=== PATIENT | male | born 1990 | race African-American/Black ===

== ENCOUNTER 2022-01-17 14:40 | Emergency (ER) | payer SELFPAY ==
[~2022-01-17] VITALS: Ht 177.8 cm; Wt 105.0 kg
[2022-01-17 18:16] LABS: BASOPHILS % 0.7 % (0.0-2.0); EOSINOPHILS % 1.1 % (0.0-5.0); HEMATOCRIT. 43.4 % (42.0-52.0); HEMOGLOBIN. 14.4 g/dL (14.0-18.0); LYMPHOCYTES % 41.6 % (20.0-50.0); MEAN CORPUSCULAR HEMOGLOBIN 29.2 pg (28.0-32.0); MEAN CORPUSCULAR VOLUME 87.7 fL (80.0-94.0); MEAN PLATELET VOLUME 7.9 fl (7.4-10.4); MONOCYTES % 7.2 % (2.0-8.0); NEUTROPHILS % 49.4 % (40.0-76.0); PLATELET 209 x1000/uL (130-400); RED BLOOD CELL COUNT 4.95 mill/uL (4.7-6.1); RED CELL DISTRIBUTION WIDTH 13.1 % (11.6-14.6)
[2022-01-17 18:21] LABS: CHLORIDE 108 mEq/L (98-107)
[2022-01-17 20:00] VITALS: BP 151/94
== END 2022-01-17 20:00 | disposition home or self-care (01) ==
LOC: ER 14:40
DX: F41.0 Panic disorder [episodic paroxysmal anxiety] (principal); F17.290 Nicotine dependence, other tobacco product, uncomplicated; F12.10 Cannabis abuse, uncomplicated
CPT/HCPCS: 36415; 80053; 82962; 84484; 85025; 93005; 99284